=== PATIENT | male | born 1985 | race African-American/Black ===

== ENCOUNTER 2016-12-09 15:36 | Emergency (ER) | payer MEDICAID ==
[~2016-12-09] VITALS: Ht 190.5 cm; Wt 86.2 kg
[~2016-12-09 15:36] MED LIST: ATRIPLA TABLET1 EAC1 ORAL; BACTRIM DS TAB1 EAC1 ORAL; CEPHALEXIN500 MG ORAL; CLINDAMYCIN HC300 MG ORAL; FLONASE ALLERG9.9 ML NS; IBUPROFEN600 MG ORAL; IBUPROFEN800 MG ORAL; KEFLEX500 MG ORAL; NASONEX17 GM NASAL; NEXAFED30 MG ORAL; NORCO 5-325 TA1 EAC1 ORAL; NORCO 5-325 TA1 EACH ORAL; NORCO 7.5/3251 EA ORAL; UNOBMED
--- NOTE | 2016-12-09 16:45 | Emergency Room Report ---
History of Present Illness General Chief Complaint: Skin Rash/Abscess Source: Patient Present Illness HPI 31-year-old male presents emergency department complaining of painful swollen lump on the external right ear times one week. Patient reports erythema and tenderness he reports pain rated as 4/10 in severity localized. Patient also reports painful ulcerative lesion on the bottom of his penis. Patient reports history of unprotected intercourse. Patient denies nausea, vomiting, fevers, chills, swollen lymph nodes, penile discharge, other lesions on the penis foreskin. Patient denies rash or itching. he denies history of immunocompromise. His hematuria, or dysuria. he denies changes in hearing, tinnitus, discharge from the ear. Patient states he had a previous abscess in the same location that was drained and believes it has returned several months later. Denies CP, Palpitations, LOC, AMS, dizziness, Changes in Vision, Sensation, paresthesias, or a sudden severe headache. Allergies: Coded Allergies: No Known Allergies (Unverified , 09/14/14) Patient History Past Medical History: see triage record Past Surgical History: none Pertinent Family History: none Immunizations: UTD Reviewed Nursing Documentation: PMH: Agreed, PSxH: Agreed Nursing Documentation-PMH Past Medical History: No History, Except For Review of Systems All Other Systems: negative except mentioned in HPI Physical Exam Vital Signs Date Time Temp Pulse Resp B/P Pulse Ox O2 Delivery O2 Flow Rate FiO2 12/09/16 15:47 98.6 92 18 112/70 98 Room Air Sp02 EP Interpretation: reviewed, normal General Appearance: no apparent distress, alert, GCS 15, non-toxic Head: normocephalic, atraumatic Eyes: bilateral eye PERRL, bilateral eye normal inspection ENT: hearing grossly normal, normal pharynx, no angioedema, normal voice Neck: full range of motion, supple/symm/no masses Respiratory: chest non-tender, lungs clear, normal breath sounds, speaking full sentences Cardiovascular #1: regular rate, rhythm, no edema Gastrointestinal: normal bowel sounds, non tender, soft, no guarding, no rebound Rectal: deferred Genitourinary: normal inspection, no CVA tenderness Musculoskeletal: back normal, gait/station normal, normal range of motion, non- tender, no calf tenderness Neurologic: alert, oriented x3, responsive, motor strength/tone normal, sensory intact, speech normal Psychiatric: judgement/insight normal, memory normal, mood/affect normal, no suicidal/homicidal ideation Skin: normal color, no rash, warm/dry, well hydrated, other - tender well demarcated ulcer with a whitish base. Single lesion, no inguinal LAD, no vessicles.. Pt. also has fluctuant tender 1cm cyst on the right tragus, mild erythema, no significant increased temperature to palpation. Lymphatic: no adenopathy Procedures Incision and Drainage Incision and Drainage : Consent: Verbal Site: right tragus Blade Size: 11 I & D Procedure: betadine prep Wound Location: head - right tragus Wound's Depth, Shape: superficial Wound Length (cm): 0 Wound Explored: contaminated - thick purulent d/c Anesthesia: 1% Lidocaine Volume Anesthetic (ccs): 1 Splint Applied?: No Sling Applied?: No Patient Tolerated: Well Complications: None Medical Decision Making PA Attestation Dr. Ellington is my supervising Physician whom patient management has been discussed with. 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 presents to the ED c/o pain, swelling of a lump on the outside of the right ear, which required drainage in the past. He also reports a single painful lesion to the bottom of his penis times one week. With history of recent unprotected intercourse. Ddx considered but are not limited to cellulitis, abscess, cystic acne, necrotizing fasciitis, insect bite. LGV, Chancroid, Herpes, syphilis Vital signs: are WNL, pt. is afebrile H&PE are most consistent with fluctuant cyst of the right tragus, and Chancroid of the base of the penis shaft. ORDERS: none required at this time, the diagnosis is clinical ED INTERVENTIONS: -I & D. - 250mg Rocephin IM -Pt will be d/c with doxy --D/w pt. that he will require full removal of the cyst, which is done as an outpatient. d/w pt. that although drained, most likely will have re-occurence of cyst/abscess if it is not completely removed. ALso d/w pt. not to have intercourse until he has completed antibiotics, and that all partners need to be treated , or he can be re-infected. DISCHARGE: At this time pt. is stable for d/c to home. Will provide printed patient care instructions, and any necessary prescriptions. Care plan and follow up instructions have been discussed with the patient prior to discharge. Last Vital Signs Date Time Temp Pulse Resp B/P Pulse Ox O2 Delivery O2 Flow Rate FiO2 12/09/16 15:47 98.6 92 18 112/70 98 Room Air Disposition: HOME, SELF-CARE Condition: Stable Scripts Bacitracin Zinc/Polymyx B Sulf (HM DOUBLE ANTIBIOTIC OINTMENT) 28.4 Gm Oint...g. 1 APPLIC TP BID, #28.4 GM Prov: Gudelia Thrasher 12/09/16 Doxycycline Hyclate* (VIBRAMYCIN*) 100 Mg Capsule 100 MG ORAL EVERY 12 HOURS for 7 Days, #14 CAP 0 Refills Prov: Gudelia Thrasher 12/09/16 Referrals: NON PHYSICIAN (PCP) Patient Instructions: Abscess, Sexually Transmitted Disease Additional Instructions: Take medications as directed. Follow up with PCP in 3-5 days Return sooner to ED if new symptoms occur, or current symptoms become worse. Gudelia Thrasher Dec 09, 2016 16:45
[2016-12-09] MEDS ORDERED: HM DOUBLE ANT28.4 G1 TP (17:31)
[2016-12-09] MEDS ORDERED: VIBRAMYCIN100 MG ORAL (17:31)
[2016-12-09] MEDS ORDERED: Lidocaine 1% MPF 10mg/ml 5ml ONE (18:39)
[2016-12-09 18:42] VITALS: BP 120/75
== END 2016-12-09 19:54 | disposition home or self-care (01) ==
LOC: EMR 16:10
DX: H60.01 Abscess of right external ear (principal); A57 Chancroid
CPT/HCPCS: 69000; 96372; 99284; J0696